=== PATIENT | female | born 1970 ===

== ENCOUNTER 2025-08-12 06:18 | Day surgery (SDC) | payer BC, SELFPAY | END 2025-08-12 12:27 | disposition home or self-care (01) | LOC: GI 06:18 | PROVIDERS: ATTENDING PHYSICIAN Internal Medicine | DX: Z12.11 Encounter for screening for malignant neoplasm of colon (principal); D12.2 Benign neoplasm of ascending colon; K63.5 Polyp of colon; Z86.0100 Personal history of colon polyps, unspecified | CPT/HCPCS: 45385; 45380; 88305 ==